=== PATIENT | male | born 2000 | race Caucasian/White ===

== ENCOUNTER 2024-01-05 13:25 | Emergency (ER) | payer BC, SELFPAY ==
[2024-01-05 13:31] VITALS: BP 131/86; PULSE 96; RESP 20; TEMP 36.9; O2SAT 100
--- NOTE | 2024-01-05 13:38 | ED.DENTAL ---
HPI - Dental/Oral General Chief complaint: Unspecified Stated complaint: excessive dry mouth Time Seen by Provider: 01/05/24 13:47 Source: patient, RN notes reviewed and old records reviewed Mode of arrival: ambulatory Limitations: no limitations History of Present Illness HPI Narrative: 23 year old male who presents to [facility] accompanied by mother with complaints of dry mouth for 3 day duration with concern for diabetes. Patient reports that his sister was just diagnosed with diabetes and he is concerned that he may also have diabetes. Patient reports no dental problems denies any sore throat or any fevers chills or sweats. Glucose level today per fingerstick 105. Patient is overweight, denies any excessive hunger or frequent urination, states that he has not eaten anything today, admits to not eating routinely. Patient reports that he does not have PCP. Onset (ago): day(s) (3) Related Data Home Medications Medication Instructions Recorded Confirmed No Home Medications 01/05/24 01/05/24 Allergies Allergy/AdvReac Type Severity Reaction Status Date / Time No Known Allergies Allergy Verified 01/05/24 13:48 Review of Systems Review of Systems: CONSTITUTIONAL: Denies fever, chills, or sweats. EYES: Denies visual changes, redness, or discharge. ENT: Denies rhinorrhea, congestion, sore throat, or otalgia, reports dry mouth for 3-4 days CARDIOVASCULAR: Denies chest pain, palpitations, or edema. RESPIRATORY: Denies cough or dyspnea. GASTROINTESTINAL: Denies abdominal pain, nausea, vomiting, or diarrhea. GENITOURINARY: Denies dysuria or hematuria. SKIN: Denies rash or itching. MUSCULOSKELETAL: Denies back pain, joint pain, or myalgia. NEUROLOGIC: Denies headache, numbness, or weakness. PSYCHIATRIC: Denies anxiety or depression. All systems reviewed & are unremarkable except as noted in HPI and below PMFSH Past Medical History Medical History (Updated 01/06/24 @ 12:42 by Miracle Lawrence NP) Gout Social History Social History (Updated 01/06/24 @ 12:43 by Miracle Lawrence NP) Smoking status: Never smoker Alcohol intake: never Substance use: never Living arrangements: with family Gender identity (if verbalized by the patient): Male Comments At time of signature, agree with nursing past medical, surgical, social and family history. There is no relevant family history pertinent to the presenting complaint Exam Narrative: GENERAL: Well-appearing, well-nourished, obese unkept appearance,and in no acute distress. HEAD: Normocephalic, atraumatic. EYES: PERRLA and EOMI. ENT: Nares clear, no rhinorrhea or epistaxis. Mucous membranes moist.TM's normal throat pink with no swelling no dental caries obvious NECK: Supple. no lymphadenopathy CHEST: Clear to auscultation. No respiratory distress.SAO2 100% on room air HEART: Regular rate and rhythm. No murmur heard. Normal peripheral pulses. ABDOMEN: Soft, nontender, nondistended, normal active bowel sounds. EXTREMITIES: Normal range of motion. No edema. SKIN: Warm, dry, no rash. NEURO: No focal deficits. Alert and oriented x3. Course Course Emergency Course: Patient is aware of diagnosis, understands and agrees to treatment plan.? Anticipatory guidance given.? Patient agrees to follow-up as directed and is aware of reasons to seek care at the emergency department. Portions of this record may have been created with voice recognition software Level of Care: Express Care Visit Vital Signs Vital signs: Vital Signs Temperature 36.9 C 01/05/24 13:31 Pulse Rate 96 01/05/24 13:31 Respiratory Rate 20 01/05/24 13:31 Blood Pressure 131/86 01/05/24 13:31 Pulse Oximetry 100 01/05/24 13:31 Oxygen Delivery Room Air 01/05/24 13:31 Temperature 36.9 C 01/05/24 13:31 Pulse Rate 96 01/05/24 13:31 Respiratory Rate 20 01/05/24 13:31 Blood Pressure 131/86 01/05/24 13:31 Pulse Oximetry 100 01/05/24 13:31 Oxygen Delivery Ro
[2024-01-05 13:49] LABS: Glucose Point of Care 105 mg/dl (65-105)
== END 2024-01-05 14:12 | disposition home or self-care (01) ==
PROVIDERS: Emergency Provider Registered Nurse
DX: R68.2 Dry mouth, unspecified (principal); M10.9 Gout, unspecified
CPT/HCPCS: 82948; 99212; G0463